=== PATIENT | male | born 1955 | race Caucasian/White ===

== ENCOUNTER → 2016-10-09 | Outpatient (CLI) | payer OTHER ==
[~2016-10-09] MED LIST: ALPRAZOLAM; ALPRAZOLAM ER1 MG PO; ALPRAZOLAM ER2 MG PO; AMARYL; AMARYL PO; ASPIRIN; ASPIRIN EC81 M1 PO; ASPIRIN81 M1 PO; ATENOLOL; AVANDIA; BYSTOLIC5 MG PO; EFFIENT10 MG PO; FENOFIBRATE160 MG PO; HYDROCODON-ACE1 EAC5 PO; IMDUR-ER30 M2 PO; IMDUR30 MG PO; LEVEMIR FL100 UNIT/1 SUBQ; LIPITOR20 MG PO; LISINOPRIL PO; LISINOPRIL2.5 MG PO; LORTAB 10/500 T1 TAB PO; METFORMIN HCL500 M1 PO; METFORMIN PO; NEURONTIN PO; NITROGLYCERIN0.4 MG SL; PLAVIX PO; RANEXA500 MG PO; VICODIN; WELCHOL625 MG PO; WELLBUTRIN XL PO; WELLBUTRIN XL150 MG PO; ZESTRIL2.5 MG PO; ZITHROMAX PO; ZOLOFT
== END | disposition home or self-care (01) ==
LOC: CRAD 08:42
DX: R13.10 Dysphagia, unspecified (principal)
CPT/HCPCS: 74230; 92611; G8996-GN; G8997-GN; G8998-GN